=== PATIENT | male | born 1960 | race Caucasian/White ===

== ENCOUNTER → 2018-09-21 | Outpatient (CLI) | payer BC ==
--- NOTE | 2018-09-22 19:10 | PCVCIMAG ---
APPROVED REPORT Study performed: 09/21/2018 14:22:46 Exam: Stress Echocardiogram Indication: Chest pain Patient Location: Echo lab Stress Nurse: Jamia Adame RN Room #: 2 Status: routine Ht: 5 ft 3 in HR: 75 bpm BP: 106/68 mmHg Rhythm: NSR Medical History Medical History: ASD repair,Pulmonic stenosis and regurgitation, Hyperlipidemia Cardiac Risk Factors: Hyperlipidemia, Tobacco History (Current/Recent) Previous Cardiac Procedures: ASD repair Pretest Chest Pain Characteristics: Mild Non-exertional Chest pain Procedure The patient underwent an Exercise Stress Test using the Devang Protocol. Blood pressure, heart rate, and EKG were monitored. An Echocardiogram was performed by outdoor emergency care technician in four stages in quad fashion. At peak stress, four selected images were obtained and placed side by side with resting images for comparison. Stress Test Details Stress Test: Exercise stress testing was performed using a Devang protocol. HR Resting HR: 75 bpmMax Heart Rate (APMHR): 161 bpm Max HR Achieved: 141 bpmTarget HR (85% APMHR): 136 bpm % of APMHR: 87 Recovery HR: 83 bpm HR response to stress: Normal HR response to stress BP Resting BP: 106/68 mmHg Max BP: 144/78 mmHg Recovery BP: 124/68 mmHg BP response to stress: Normal blood pressure response to stress. ECG Resting ECG: Sinus Rhythm, nonspecific ST-T abnormalities Stress ECG: Sinus Rhythm, NSSTT changes ST Change: Non-ischemic Maximum ST Deviation: 0 mm Arrhythmia: Occ PVCs, couplet PVC Recovery ECG: Sinus Rhythm Recovery ST Change: Non-ischemic Recovery ST Deviation: 0 mm Recovery Arrhythmia: Occ PVCs Clinical Reason for Termination: Maximal effort Stress Symptoms: Chest pain, Leg Fatigue Exercise duration: 12 min 00 sec Highest Stage Achieved: Stage 4: 4.2 mph at 16% grade. Exercise capacity: 13.7 METs Overall Exercise Capacity for Age: Good Scale: Active Angina Score: None No complications. Stress ECG Conclusion The patient exercised according to the DEVANG protocol for 12:00 mins; achieving a work level of 13.7 METS. The resting heart rate of 75 bpm cristopher to a maximum heart rate of 141 bpm. This value represent 87% of the maximal, age-predicted heart rate. The resting blood pressure of 106/68mmHg, cristopher to a maximum blood pressure of 144/78 mmHg. The exercise test was stopped due to fatigue and dyspnea . Knott Treadmill Score is 12.0 which is Low risk. Pre-Stress Echo The resting Echocardiogram showed normal left ventricular contractility with an estimated Ejection Fraction of about 55-60%. Normal wall motion in all segments on baseline images. Post-Stress Echo The stress Echocardiogram showed normal left ventricular contractility with an estimated Ejection Fraction of about 65-70%. Normal augmentation of wall motion in all segments on post stress images. Clinical No clinical or ECG evidence for ischemia. Conclusion Clinical Response: Non-ischemic Exercise Capacity: Superior Stress ECG Response: Non-ischemic Stress Echo Images: Non-ischemic No clinical, EKG or echocardiographic evidence for ischemia. No echocardiographic evidence for exercise induced ischemia. Normal stress echocardiogram with maximal exercise stress. <Conclusion> No clinical, EKG or echocardiographic evidence for ischemia. No echocardiographic evidence for exercise induced ischemia. Normal stress echocardiogram with maximal exercise stress.
== END | disposition home or self-care (01) ==
LOC: PCVCIMAG 09-20 16:30
PROVIDERS: ATTEND Internal Medicine Cardiovascular Disease
DX: R07.9 Chest pain, unspecified (principal); Q24.9 Congenital malformation of heart, unspecified; R06.02 Shortness of breath
CPT/HCPCS: 93325; 93351